=== PATIENT | female | born 1985 | race Caucasian/White ===

== ENCOUNTER 2019-01-01 20:10 | Emergency (ER) | payer OTHER, MEDICAID, SELFPAY ==
[2019-01-01 20:20] VITALS: BP 132/83; PULSE 118; RESP 20; TEMP 36.8; O2SAT 100; BMI 30.6
--- NOTE | 2019-01-01 20:24 | ED_ITS ---
HPI - Ear Problem General Chief complaint: Ear Stated complaint: EAR INFECTION Time Seen by Provider: 01/01/19 20:24 Source: patient Mode of arrival: ambulatory Limitations: no limitations History of Present Illness HPI Narrative: 33-year-old female here for evaluation of bilateral ear pain. Patient states that symptoms started 2 days ago. Has not tried anything for them prior to arrival. She thinks she has an ear infection. Related Data Previous Rx's Medication Instructions Recorded azithromycin See Rx Instructions .ROUTE 01/01/19 .COMPLEX #6 tab Review of Systems Constitutional Denies fever(s) and Reports headache(s) ENT Ears, Nose, Mouth, and Throat: Reports headache(s) and Denies sore throat Comments: Bilateral ear pain Respiratory Denies cough Integumentary/Breasts Denies rash Neurologic Reports headache(s) [facility] Medical History Patient denies medical problems (Acute) Social History Smoking Status: Current every day smoker Social History Smoking Status: Current every day smoker Exam Initial Vital Signs Initial Vital Signs: Vital Signs Temperature 98.2 F 01/01/19 20:20 Pulse Rate 118 H 01/01/19 20:20 Respiratory Rate 20 01/01/19 20:20 Blood Pressure 132/83 01/01/19 20:20 Pulse Oximetry 100 01/01/19 20:20 Const General: cooperative, comfortable, well developed, well groomed and No acute distress Orientation: alert, awake and oriented x3 HENMT Head: normal to inspection and normocephalic Ears: TM abnormal bulging bilaterally, dull bilaterally and erythematous bilaterally Nose: external nose normal Face and sinus: normal facial exam Mouth: oral mucosae normal Resp Effort & Inspection: normal respiratory effort Auscultation: clear to auscultation bilaterally Skin Lesions: no lesions Rashes: no rashes Neuro General: alert and awake Cognition: normal cognition Speech: speech normal Psych Appearance: grossly normal and well kempt Course Vital Signs - 8 hr 01/01/19 20:20 Temperature 98.2 F Pulse Rate 118 H Respiratory Rate 20 Blood Pressure 132/83 Pulse Oximetry 100 Medical Decision Making [facility] Narrative Medical decision making narrative: Patient does have bilateral red bulging tympanic membranes. Did discuss the use of Tylenol and ibuprofen for any pain. Will send home with prescription for antibiotics however informed her that she should try decongestants for the next day or so and if that is not improving then start the antibiotics as directed. She expressed understanding agreement plan. Patient was given return precautions and follow-up instructions. Discharge Plan Departure Patient Disposition: Home Clinical Impression: Otitis media Qualifiers: Otitis media type: serous Chronicity: acute Laterality: bilateral Recurrence: non-recurrent Qualified Code(s): H65.03 - Acute serous otitis media, bilateral Discharge Date/Time: 01/01/19 20:37 Interventions: ED Discharge Assessment Last Done: 01/01/19 20:37 Instructions: Ear Infections (Middle Ear) (Alternative Therapy), Middle Ear Infection Activity Restrictions/Additional Instructions: I do recommend that you start taking a decongestant such as Claritin or Renetta or Zyrtec. You can buy these [id number]. You can also take and nasal spray such as Flonase or Nasonex. You can buy this [id number] as well. You can buy the generic versions of these medications. I recommend you take these for the next couple days and if your symptoms do not improve then start taking the antibiotics. You can take Tylenol for any discomfort. Return to the emergency department for any new or worsening symptoms Prescriptions: New azithromycin 250 mg tablet See Rx Instructions .ROUTE .COMPLEX Qty: 6 RF: 0
== END 2019-01-01 20:37 | disposition home or self-care (01) ==
LOC: ED 21:04
PROVIDERS: Emergency Provider Emergency Medicine
DX: H65.03 Acute serous otitis media, bilateral (principal)
CPT/HCPCS: 99282; 99283